=== PATIENT | female | born 1985 | race Caucasian/White ===

== ENCOUNTER 2016-11-26 18:34 | Emergency (ER) | payer SELFPAY ==
[~2016-11-26] VITALS: Ht 170.2 cm; Wt 102.0 kg
[~2016-11-26 18:34] MED LIST: FIORTAB4 PO; TRAM50 PO; VIT B-12; [UNRECOGNIZED DRUG - OTHER]; [UNRECOGNIZED DRUG - OTHER]
[2016-11-26 18:49] VITALS: BP 134/100; PULSE 95; RESP 20; TEMP 98.1; O2SAT 98
--- NOTE | 2016-11-26 19:07 | PD ---
HPI Chief Complaint: Anxiety Time Seen by Provider: 19:00 Travel History International Travel<30 days: No Contact w/Intl Traveler<30days: No Traveled to known affect area: No History of Present Illness HPI The patient is a 31 year old female who presents to the [facility] emergency department with a history of sudden onset of shortness of breath, generalized itching that began prior to arrival. The patient reports that she works as a cable television installer and was given a vehicle without air-conditioning. She reports that she immediately turned the vehicle back when she began to experience her allergy symptoms. She reports that the symptoms seemed to be worsening and she became anxious. She reports that she has a history of anxiety disorder followed by a local psychiatrist. She reports that she then was exposed to cigarette smoke and a floral perfume which continue to exacerbate her symptoms thus she came to the emergency department for evaluation and treatment. She is followed by an firefighting equipment specialist and it has not been determined the exact cause of all of her allergies have been present over the last year and a half. She reports that since March she has been on prednisone initially at 60 mg which is now tapered down to 20 mg. The patient reports having associated dry cough and a burning sensation to her skin. The patient reports that the symptoms occur whenever she goes out into the feet. She reports that because of this she does not go out in the daytime. The patient denies any recent fevers,congestion, neck pain, abdominal pain, vomiting , diarrhea, urinary symptoms, or neurologic symptoms. Last menstrual cycle was reportedly 10 years ago related to treatments for dysfunctional uterine bleeding. Psychiatrist: Dr. Clark Electronic Assembler Group Leader: Dr. Leo Mendes. PCP: Dr. Schultz. [facility] Past Medical History Narrative Medical The patient's past medical history is significant anxiety, allergies times of undetermined origin, pituitary microadenoma, hiatal hernia, neuropathy, history of dysfunctional uterine bleeding status post treatment with a Mirena IUD ADD: Yes ADHD: Yes Asthma: Yes Bipolar Disorder: Yes (NOT TAKING PRESCRIBED MEDS AT THIS TIME) Anxiety: Yes Diminished Hearing: No Headaches: Yes Psychiatric: Yes Reproductive: Yes (DYSFUNCTIONAL UTERINE BLEEDING SINCE AGE 8 ) Migraines: Yes ?: Not Menopausal: No : 1 Para: 0 Miscarriage: 1 : 1 Ectopic : Yes (THERAPEUTIC ) Past Surgical History Narrative Surgical The patient's past surgical history is significant for facial reconstruction, pyogenic granuloma removal off of right shoulder, was into the extraction, surgical . Gynecologic Surgery: Yes ("SURGICAL ") Oral Surgery: Yes (WISDOM TEETH REMOVAL) Other Surgery: Yes (facial reconstruction as a child) Social History Alcohol Use: Yes (1-2 wk) Tobacco Use: No Substance Use: No Allergies-Medications (Allergen,Severity, Reaction): Coded Allergies: Balsam Virgilio (Verified Allergy, Intermediate, DIFF BREATHING, 11/26/16) Soy Protein (Verified Allergy, Intermediate, Rash, 11/26/16) Sulfa (Verified Allergy, Intermediate, RASH AND PALPITATIONS, 11/26/16) Topamax (Verified Allergy, Intermediate, COMMUNICATION PROBLEMS, 11/26/16) Wheat (Verified Allergy, Intermediate, Rash, 11/26/16) Benzophenone (Verified Allergy, Mild, BLISTERS, 11/26/16) Darvocet-N 100 (Verified Allergy, Mild, VOMITING, 11/26/16) Darvon (Verified Allergy, Mild, RASH, 11/26/16) Dextromethorphan (Verified Allergy, Mild, ARRYTHMIA, 11/26/16) Formaldehyde (Verified Allergy, Mild, RASH, 11/26/16) Lidocaine (Verified Allergy, Mild, ALL "DAJA" - CHILDHOOD?, 11/26/16) Lortab (Verified Allergy, Mild, VOMITING, 11/26/16) Parabens (Verified Allergy, Mild, RASH, 11/26/16) Dairy (Verified Adverse Reaction, Unknown, LACTOSE INTLERANCE, 11/26/16) Uncoded Allergies: FRAGRANCES (Allergy, Intermediate, DIFFICULTY BVREATHING, 11/26/16) MYROXYLON PEREIRAE RESISN (Allergy, Intermediate, DIFFICULTY BREATHING, ) CHLOROXYLENOL (Allergy, Mild, UNKNOWN, 11/26/16) DISPERSE BLUE (Allergy, Mild, RASH, 11/26/16) HYDROXYMETHOXYBENZOPHENONE (Allergy, Mild, BLISTERS, 11/26/16) MERCURY (Allergy, Mild, BLISTERS, 11/26/16) MIXDIALKYL PHIOUREA (Allergy, Mild, UNKNOWN, 11/26/16) PROPOLIS (Allergy, Mild, UNKNOWN, 11/26/16) RESPIRDAL (Allergy, Mild, VOMITING, 03/05/09) THIMEROSAL (Allergy, Mild, UNKNOWN, 11/26/16) THIURAM MIX (Allergy, Mild, UNKNOWN, 11/26/16) VANILLA (Allergy, Mild, 07/13/07) COBALT (Adverse Reaction, Mild, RASH, 11/26/16) Reported Meds & Prescriptions Reported Meds & Active Scripts Active Ultram (Tramadol HCl) 50 Mg Tab 1 Tab PO Q6HPRN FOR PAIN Fioricet (Acetaminophen/Butalbital/Caffeine) Tab 1 Tab PO Q6HPRN FOR HEADACHE Reported [Vit B-12] [Teen Vitamin] [Christina Control] Narrative Medication betamethasone, levoalbuterol, hydroxizine. famotidine, cyprohepatidine, Prednisone since weaned down to 20mg. Review of Systems Except as stated in HPI: all other systems reviewed are Neg General / Constitutional: No: Fever Eyes: No: Visual changes HENT: No: Headaches Cardiovascular: Positive: Chest Pain or Discomfort (burning and tightness), Dyspnea on exertion Respiratory: Positive: Cough, Shortness of Breath Gastrointestinal: No: Abdominal Pain Genitourinary: No: Dysuria Musculoskeletal: No: Pain Skin: Positive Rash, Positive Itching Neurologic: No: Weakness Psychiatric: No: Depression Endocrine: No: Polydipsia Hematologic/Lymphatic: No: Easy Bruising Physical Exam Narrative General: The patient is a well-developed well-nourished female, anxious appearing on examination, tearful, hyperventilating. Head and Neck exam: Head is normocephalic atraumatic. Eyes: EOMI, pupils are equal round and reactive to light. Nose: Midline septum with pink mucous membranes Mouth: Dentition unremarkable. Moist mucus membranes. Posterior oropharynx is not erythematous. No tonsillar hypertrophy. Uvula midline. Airway patent. Neck: No palpable lymphadenopathy. No nuchal rigidity. No thyromegaly. Cardiovascular: Regular rate and rhythm without murmurs, gallops, or rubs. No pulse deficit to the extremities. Lungs: Initially hyperventilating on arrival with an O2 saturation of 99% on room air. With further discussion, the patient begins to calm her breathing. Respiratory rate returns to normal. Clear to auscultation bilaterally. No wheezes, rhonchi, or rales. Abdomen: Soft, without tenderness to palpation in all 4 quadrants of the abdomen. No guarding, rebound, or rigidity. Normal bowel sounds are audible. Extremities: No clubbing, cyanosis, or edema. 2+ pulses in all 4 extremities. No calf tenderness on palpation. Back: No spinous process tenderness to palpation. No costovertebral angle tenderness to palpation. Neurologic Exam: Grossly nonfocal. Skin Exam: Generalized erythema noted over the anterior chest. Intact skin that is warm and slightly moist from sweating. Data Data Last Documented VS Vital Signs Date Time Temp Pulse Resp B/P Pulse Ox O2 Delivery O2 Flow Rate FiO2 11/26/16 20:19 80 16 174/79 98 11/26/16 20:03 Room Air 11/26/16 18:49 98.1 Orders Complete Blood Count With Diff (11/26/16 19:09) Comprehensive Metabolic Panel (11/26/16 19:09) Urinalysis - C+S If Indicated (11/26/16 19:09) Westergren Sedimentation Rate (11/26/16 19:09) Chest, Single Ap (11/26/16 19:09) Iv Access Insert/Monitor (11/26/16 19:09) Ecg Monitoring (11/26/16 19:09) Oximetry (11/26/16 19:09) Ed Urine Pregnancytest Poc (11/26/16 19:09) Sodium Chlor 0.9% 1000 Ml Inj (Ns 1000 M (11/26/16 19:15) Hydroxyzine Hcl (Atarax) (11/26/16 19:15) Famotidine Inj (Pepcid Inj) (11/26/16 19:15) Electrocardiogram (11/26/16 19:28) Prednisone (Deltasone) (11/26/16 20:15) Oral Rehydration (11/26/16 20:40) Labs Laboratory Tests Test 11/26/16 19:45 White Blood Count 7.9 TH/MM3 Red Blood Count 4.74 MIL/MM3 Hemoglobin 13.5 GM/DL Hematocrit 39.6 % Mean Corpuscular Volume 83.5 FL Mean Corpuscular Hemoglobin 28.4 PG Mean Corpuscular Hemoglobin 34.1 % Concent Red Cell Distribution Width 13.7 % Platelet Count 243 TH/MM3 Mean Platelet Volume 8.9 FL Neutrophils (%) (Auto) 66.8 % Lymphocytes (%) (Auto) 23.4 % Monocytes (%) (Auto) 8.0 % Eosinophils (%) (Auto) 1.4 % Basophils (%) (Auto) 0.4 % Neutrophils # (Auto) 5.3 TH/MM3 Lymphocytes # (Auto) 1.8 TH/MM3 Monocytes # (Auto) 0.6 TH/MM3 Eosinophils # (Auto) 0.1 TH/MM3 Basophils # (Auto) 0.0 TH/MM3 CBC Comment DIFF FINAL Differential Comment Erythrocyte Sedimentation Rate 15 mm/hr Urine Color YELLOW Urine Turbidity HAZY Urine pH 7.0 Urine Specific [place] 1.020 Urine Protein TRACE mg/dL Urine Glucose (UA) NEG mg/dL Urine Ketones NEG mg/dL Urine Occult Blood MOD Urine Nitrite NEG Urine Bilirubin NEG Urine Urobilinogen LESS THAN 2.0 MG/DL Urine Leukocyte Esterase TRACE Urine RBC 1 /hpf Urine WBC 2 /hpf Urine Squamous Epithelial 4 /hpf Cells Urine Bacteria RARE /hpf Urine Mucus FEW /lpf Microscopic Urinalysis Comment CULT NOT INDICATED Sodium Level 138 MEQ/L Potassium Level 3.2 MEQ/L Chloride Level 104 MEQ/L Carbon Dioxide Level 22.9 MEQ/L Anion Gap 11 MEQ/L Blood Urea Nitrogen 6 MG/DL Creatinine 0.68 MG/DL Estimat Glomerular Filtration 100 ML/MIN Rate Random Glucose 77 MG/DL Calcium Level 9.0 MG/DL Total Bilirubin 0.6 MG/DL Aspartate Amino Transf 14 U/L (AST/SGOT) Alanine Aminotransferase 19 U/L (ALT/SGPT) Alkaline Phosphatase 88 U/L Total Protein 7.6 GM/DL Albumin 3.6 GM/DL MDM Medical Decision Making Medical Screen Exam Complete: Yes Emergency Medical Condition: Yes Medical Record Reviewed: Yes Differential Diagnosis Exacerbation of panic disorder, versus acute allergic reaction, versus asthma exacerbation Narrative Course During the course of the patients emergency department visit, the patients history, examination, and differential diagnosis were reviewed with the patient. The patient had IV access obtained and blood work sent for analysis. The patient was placed on a sub assembly team worker with oximetry and blood pressure monitoring. An EKG was ordered. The patient's EKG shows a sinus rhythm heart rate is 78, no acute ST segment elevation or depression, T waves are inverted in V1, QRS duration 90 ms QTC 401 ms. The patient was initially provided hydroxyzine 20 mg by mouth for itching and anxiety, famotidine 20 mg IV, normal saline 1 L IV fluid bolus. The patient administered her leave the albuterol inhaler prior to arrival. The patient has no evidence of wheezing at this time. The patient was given prednisone 20 mg by mouth 1. The patients laboratory studies were reviewed and remarkable for a CBC that is within normal limits, sedimentation rate is 15 decreased the likelihood of an autoimmune process, however the patient is currently on prednisone, therefore this could be masking an elevation in her sedimentation rate. CMP is remarkable for potassium of 3.2, BUNs 6, AST 14, urinalysis is unremarkable. Radiology studies were reviewed and remarkable for a chest x-ray that shows no evidence of acute cardiopulmonary disease. The patient reports feeling improved. The patient will be discharged home to follow-up with her firefighting equipment specialist and primary care physician. The patient is resting comfortably and feels better, is alert and in no distress. The patients results and examination findings were discussed with the patient. The repeat examination is unremarkable and benign. The history, exam, diagnostic testing, and current condition do not suggest any significant pathology to warrant further testing, continued ED treatment, admission, or surgical evaluation at this point. The vital signs have been stable. The patient does not have uncontrollable pain, intractable vomiting, or other significant symptoms. The patient's condition is stable and appropriate for discharge. The patient will pursue further outpatient evaluation with a primary care physician or other designated or consulting physician as indicated in the discharge instructions. The patient expressed understanding and was agreeable with this plan. Diagnosis Primary Impression: Allergic reaction Qualified Code: T78.40XA - Allergic reaction, initial encounter Additional Impression: Asthma attack Referrals: Primary Care Physician Patient Instructions: Asthma (ED), General Allergic Reaction (ED), General Instructions Additional Instructions: The patient is instructed to continue on her previously prescribed medications for allergy symptoms including her prednisone and her levalbuterol inhaler use when necessary Med/Other Pt SpecificInfo: No Change to Meds Disposition: 01 DISCHARGE HOME Condition: Stable Leslie Garner MD Nov 26, 2016 19:06
[2016-11-26] MEDS ORDERED: SODIUM CHLOR 0.9% 1000 ML INJ 1,000 ML IV ONE (19:15)
[2016-11-26] MEDS ORDERED: hydrOXYzine HCL 10 MG TAB PO ONE (19:15)
[2016-11-26] MEDS ORDERED: FAMOTIDINE INJ 20 MG in SODIUM CHLORIDE 0.9% INJ 98 ML IV SCH (19:15)
[2016-11-26 20:03] VITALS: BP 127/65; PULSE 76; RESP 18; O2SAT 99
--- NOTE | 2016-11-26 20:05 | RADRPT ---
EXAM DATE/TIME: 11/26/2016 19:45 [facility] COMPARISON: No previous studies available for comparison. INDICATIONS : Shortness of breath, chest tightness. MEDICAL HISTORY : Asthma. SURGICAL HISTORY : None. ENCOUNTER: Initial ACUITY: 1 day PAIN SCORE: 0/10 LOCATION: Bilateral chest FINDINGS: A single view of the chest demonstrates the lungs to be symmetrically aerated without evidence of mas s, infiltrate or effusion. The cardiomediastinal contours are unremarkable. Osseous structures are grossly intact. Mild to moderate dextroconvex curvature seen of the thoracic spine. CONCLUSION: No evidence of acute cardiopulmonary disease. Felix Suarez MD on November 26, 2016 at 20:02 Board Certified Radiologist. This report was verified electronically.
[2016-11-26] MEDS ORDERED: predniSONE 20 MG TAB PO ONE (20:15)
[2016-11-26 20:16] LABS: AUTOMATED NEUTROPHIL # 5.3 TH/MM3 (1.8-7.7); BASOPHIL % 0.4 % (0.0-2.0); EOSINOPHIL # 0.1 TH/MM3 (0-0.4); EOSINOPHIL % 1.4 % (0.0-4.0); HEMATOCRIT 39.6 % (35.0-46.0); HEMO FLAGS DIFF FINAL; LYMPH % 23.4 % (9.0-44.0); LYMPHOCYTE # 1.8 TH/MM3 (1.0-4.8); MEAN CELL VOLUME 83.5 FL (80.0-100.0); MEAN CORPUSCULAR HEMOGLOBIN 28.4 PG (27.0-34.0); MEAN CORPUSCULAR HGB CONC 34.1 % (32.0-36.0); NEUT % 66.8 % (16.0-70.0); PLATELET COUNT 243 TH/MM3 (150-450); RED BLOOD COUNT 4.74 MIL/MM3 (4.00-5.30); RED CELL DISTRIBUTION WIDTH 13.7 % (11.6-17.2); WHITE BLOOD COUNT 7.9 TH/MM3 (4.0-11.0)
[2016-11-26 20:19] VITALS: BP 174/79; PULSE 80; RESP 16; O2SAT 98
[2016-11-26 20:34] LABS: BACTERIA, URINE RARE /hpf; BLOOD, URINE MOD (NEG); GLUCOSE,URINE NEG (NEG); KETONE, URINE NEG (NEG); MUCUS URINE FEW /lpf (OCC); NITRITE,URINE NEG (NEG); SQUAMOUS EPITHELIAL CELL URINE 4 /hpf (0-5); URINE COLOR YELLOW (YELLW/STRAW)
[2016-11-26 20:36] LABS: ANION GAP 11 MEQ/L (5-15); AST (GOT) 14 U/L (15-37); BICARBONATE 22.9 MEQ/L (21.0-32.0); BLOOD UREA NITROGEN 6 MG/DL (7-18); CHLORIDE 104 MEQ/L (98-107); COMMENT (UR) CULT NOT INDICATED; CULTURE IF INDICATED CULT NOT INDICATED; GLOMERULAR FILTRATION RATE 100 ML/MIN (>89); POTASSIUM 3.2 MEQ/L (3.5-5.1); SODIUM (NA) 138 MEQ/L (136-145)
[2016-11-26 20:38] LABS: ALT (GPT) 19 U/L (10-53)
[2016-11-26 20:39] LABS: ALKALINE PHOSPHATASE 88 U/L (45-117); TOTAL BILIRUBIN ADULT 0.6 MG/DL (0.2-1.0)
--- NOTE | 2016-11-27 08:05 | EKG ---
Date Performed: 11/26/2016 Time Performed: 20:12:14 PTAGE: 31 years EKG: Sinus rhythm POSSIBLE RIGHT VENTRICULAR CONDUCTION DELAY BORDERLINE ECG NO PREVIOUS TRACING DOCTOR: Jerome Amaya Interpretating Date/Time 11/27/2016 08:03:04
== END 2016-11-26 21:36 | disposition home or self-care (01) ==
LOC: NEPE 18:34
DX: T78.40XA Allergy, unspecified, initial encounter (principal); J45.909 Unspecified asthma, uncomplicated; R94.31 Abnormal electrocardiogram [ECG] [EKG]; F41.9 Anxiety disorder, unspecified; X58.XXXA Exposure to other specified factors, initial encounter; Y99.0 Civilian activity done for income or pay
CPT/HCPCS: 71010; 80053; 81001; 84703; 85025; 85652; 93005; 96361; 96365; 99285; J7030; J7512

== ENCOUNTER 2017-06-23 07:53 | Emergency (ER) | payer OTHER ==
[~2017-06-23] VITALS: Ht 170.2 cm; Wt 105.0 kg
[2017-06-23 07:55] VITALS: BP 164/84; PULSE 109; RESP 24; TEMP 99.7; O2SAT 99
--- NOTE | 2017-06-23 09:16 | RADRPT ---
EXAM DATE/TIME: 06/23/2017 08:21 [facility] COMPARISON: CHEST SINGLE AP, November 26, 2016, 19:45. INDICATIONS : Short of breath. Flu-like symptoms. MEDICAL HISTORY : Asthma. SURGICAL HISTORY : None. ENCOUNTER: Initial ACUITY: 2 days PAIN SCORE: 0/10 LOCATION: Bilateral chest FINDINGS: Moderate dextroscoliosis of the thoracic spine. No new focal pleural or parenchymal opacities. Cardio mediastinal contours are within normal limits. Bony thorax is intact. CONCLUSION: 1. No acute abnormality or significant interval change. Owen Mclaughlin MD on June 23, 2017 at 9:12 Board Certified Radiologist. This report was verified electronically.
[2017-06-23] MEDS ORDERED: OSEL75 PO (09:23)
--- NOTE | 2017-06-23 09:24 | PD ---
HPI Chief Complaint: GI Complaint Time Seen by Provider: 08:04 Travel History International Travel<30 days: No Contact w/Intl Traveler<30days: No History of Present Illness HPI 31-year-old female came to the emergency room with history of cough, fever, body aches for past day or 2. Patient has history of asthma and has been taking her Xopenex. She also has history of multiple allergies. She is pointing to these rash on her bilateral upper extremities that she's been taking allergy medications for but they're not getting better as per the patient. She was slightly tachycardic in triage. She says she has been vomiting which sounds mostly posttussive. She is very anxious and hyperventilating. Oxygen saturation was within normal limits. 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 [facility] Past Medical History Narrative Medical List of her past medical, surgical, social and family history is reviewed from the nursing note. ADD: Yes ADHD: Yes Asthma: Yes Bipolar Disorder: Yes Anxiety: Yes Depression: Yes Diminished Hearing: No Headaches: Yes Medical other: Yes (BRAIN TUMOR- PITUITARY MICROADENOMA) Psychiatric: Yes (?SCHITZOEFFECTIVE DISORDER) Reproductive: Yes (DYSFUNCTIONAL UTERINE BLEEDING SINCE AGE 8 ) Migraines: Yes Pneumonia: Yes ?: Not LMP: MIRENA IN PLACE Menopausal: No : 1 Para: 0 Miscarriage: 1 : 1 Ectopic : Yes (THERAPEUTIC ) Past Surgical History Gynecologic Surgery: Yes ("SURGICAL ") Oral Surgery: Yes (WISDOM TEETH REMOVAL) Other Surgery: Yes (facial reconstruction as a child) Social History Alcohol Use: Yes (OCCASSIONAL) Tobacco Use: No Substance Use: No Allergies-Medications (Allergen,Severity, Reaction): Coded Allergies: Sulfa (Sulfonamide Antibiotics) (Unverified Allergy, Intermediate, RASH AND PALPITATIONS, 06/23/17) balsam kody (Unverified Allergy, Intermediate, DIFF BREATHING, 06/23/17) soy (Unverified Allergy, Intermediate, Rash, 06/23/17) topiramate (Unverified Allergy, Intermediate, COMMUNICATION PROBLEMS, ) wheat (Unverified Allergy, Intermediate, Rash, 06/23/17) acetaminophen (Unverified Allergy, Mild, VOMITING, 06/23/17) benzophenone (Unverified Allergy, Mild, BLISTERS, 06/23/17) dextromethorphan (Unverified Allergy, Mild, ARRYTHMIA, 06/23/17) formaldehyde (Unverified Allergy, Mild, RASH, 06/23/17) hydrocodone (Unverified Allergy, Mild, VOMITING, 06/23/17) lidocaine (Unverified Allergy, Mild, ALL "DAJA" - CHILDHOOD?, 06/23/17) paraben (Unverified Allergy, Mild, RASH, 06/23/17) propoxyphene (Unverified Allergy, Mild, VOMITING, 06/23/17) lactose (Unverified Adverse Reaction, Unknown, LACTOSE INTLERANCE, 06/23/17) Uncoded Allergies: FRAGRANCES (Allergy, Intermediate, DIFFICULTY BVREATHING, 11/26/16) MYROXYLON PEREIRAE RESISN (Allergy, Intermediate, DIFFICULTY BREATHING, ) CHLOROXYLENOL (Allergy, Mild, UNKNOWN, 11/26/16) DISPERSE BLUE (Allergy, Mild, RASH, 11/26/16) HYDROXYMETHOXYBENZOPHENONE (Allergy, Mild, BLISTERS, 11/26/16) MERCURY (Allergy, Mild, BLISTERS, 11/26/16) MIXDIALKYL PHIOUREA (Allergy, Mild, UNKNOWN, 11/26/16) PROPOLIS (Allergy, Mild, UNKNOWN, 11/26/16) RESPIRDAL (Allergy, Mild, VOMITING, 03/05/09) THIMEROSAL (Allergy, Mild, UNKNOWN, 11/26/16) THIURAM MIX (Allergy, Mild, UNKNOWN, 11/26/16) VANILLA (Allergy, Mild, 07/13/07) COBALT (Adverse Reaction, Mild, RASH, 11/26/16) Comments List of her extensive allergies are reviewed from the nursing note. Reported Meds & Prescriptions Reported Meds & Active Scripts Active Zofran Odt (Ondansetron Odt) 4 Mg Tab 4 Mg SL Q6HR PRN Tamiflu (Oseltamivir Phosphate) 75 Mg Cap 75 Mg PO BID 5 Days Ultram (Tramadol HCl) 50 Mg Tab 1 Tab PO Q6HPRN FOR PAIN Fioricet (Acetaminophen/Butalbital/Caffeine) Tab 1 Tab PO Q6HPRN FOR HEADACHE Reported [Vit B-12] [Teen Vitamin] [Christina Control] Narrative Medication List of her home medications reviewed from the nursing note. Review of Systems Except as stated in HPI: all other systems reviewed are Neg Respiratory: Positive: Cough Gastrointestinal: Positive: Nausea, Vomiting Physical Exam Narrative GENERAL: Awake, alert, anxious, hyperventilating SKIN: Focused skin assessment warm/dry. Multiple small scab lesions on both upper extremities HEAD: Atraumatic. Normocephalic. EYES: Pupils equal and round. No scleral icterus. No injection or drainage. ENT: No nasal bleeding or discharge. Mucous membranes pink and moist. NECK: Trachea midline. No JVD. CARDIOVASCULAR: Regular rate and rhythm. No murmur appreciated. RESPIRATORY: No accessory muscle use. Clear to auscultation. Breath sounds equal bilaterally. GASTROINTESTINAL: Abdomen soft, non-tender, nondistended. Hepatic and splenic margins not palpable. MUSCULOSKELETAL: No obvious deformities. No clubbing. No cyanosis. No edema. NEUROLOGICAL: Awake and alert. No obvious cranial nerve deficits. Motor grossly within normal limits. Normal speech. PSYCHIATRIC: Appropriate mood and affect; insight and judgment normal. Data Data Last Documented VS Vital Signs Date Time Temp Pulse Resp B/P (MAP) Pulse Ox O2 Delivery O2 Flow Rate FiO2 06/23/17 10:10 06/23/17 07:55 99.7 109 24 99 Orders Orders Chest, Pa & Lat (06/23/17 ) Influenzae A/B Antigen (06/23/17 08:04) Oseltamivir (Tamiflu) (06/23/17 09:30) Ed Discharge Order (06/23/17 09:24) MDM Medical Decision Making Medical Screen Exam Complete: Yes Emergency Medical Condition: Yes Medical Record Reviewed: Yes Differential Diagnosis Influenza, viral illness Narrative Course 9:22 AM patient is positive for influenza a. Chest x-rays negative. I've given her dose of Tamiflu and she'll be discharged home on prescription. Diagnosis Primary Impression: Influenza A Referrals: Primary Care Physician Additional Instructions: Take the medication as per the prescription direction. Drink lots of fluid, warm tea with honey. Follow-up with your primary care. Done to the ER if the condition worsens or any other new concerns. Med/Other Pt SpecificInfo: Prescription(s) given Scripts Ondansetron Odt (Zofran Odt) 4 Mg Tab 4 MG SL Q6HR Y for Nausea/Vomiting, #30 TAB 0 Refills Prov: Nathan Unger MD 06/23/17 Oseltamivir (Tamiflu) 75 Mg Cap 75 MG PO BID for Mgmt Viral Infection for 5 Days, #10 CAP 0 Refills Prov: Nathan Unger MD 06/23/17 Disposition: 01 DISCHARGE HOME Condition: Stable Nathan Unger MD Jun 23, 2017 09:24
[2017-06-23] MEDS ORDERED: OSELTAMIVIR PHOSPHATE 75 MG CAP PO ONE (09:30)
[2017-06-23] MEDS ORDERED: ZOFR4TAB3 SL (10:05)
== END 2017-06-23 10:19 | disposition home or self-care (01) ==
LOC: NEPE 07:53
DX: J09.X2 Influenza due to identified novel influenza A virus with other respiratory manifestations (principal); R11.2 Nausea with vomiting, unspecified; J45.909 Unspecified asthma, uncomplicated; R21 Rash and other nonspecific skin eruption; R00.0 Tachycardia, unspecified; F90.9 Attention-deficit hyperactivity disorder, unspecified type; F31.9 Bipolar disorder, unspecified; F41.9 Anxiety disorder, unspecified; F25.9 Schizoaffective disorder, unspecified
CPT/HCPCS: 71046; 87804; 99284